=== PATIENT | male | born 1990 | race Two or more races ===

== ENCOUNTER 2017-02-11 20:05 | Emergency (ER) | payer OTHER ==
[2017-02-11 20:24] VITALS: BP 150/89; PULSE 92; RESP 16; TEMP 98.4; O2SAT 95
--- NOTE | 2017-02-11 20:43 | UCPHY ---
H & P Patient Type: Established Chief Complaint Nursing Narrative: fever/congestion since . severe cough on and off x 1 year. Time Seen by Provider: 02/11/17 20:35 HPI/ROS: CHIEF COMPLAINT: Cough HISTORY OF PRESENT ILLNESS: Patient is a 26-year-old man who comes to the Urgent Care complaining of cough for the last 2 days as well as intermittent fevers. He states that he has had a intermittent cough for the last year ever since he had bronchitis but that is worsened over the last 2 days. He does not smoke. He does not have any history of asthma or respiratory disease. Mom states that it sounds like he has pneumonia because of his thick junky cough. He does complain of chills. He describes symptoms as moderate. No sore throat , no sinus congestion REVIEW OF SYSTEMS: Constitutional: denies: chills, fever, recent illness, recent injury EENTM: denies: blurred vision, double vision, nose congestion Respiratory: See HPI Cardiac: denies: chest pain, irregular heart rate, lightheadedness, palpitations Gastrointestinal/Abdominal: denies: abdominal pain, diarrhea, nausea, vomiting, blood streaked stools Genitourinary: denies: dysuria, frequency, hematuria, pain Musculoskeletal: denies: joint pain, muscle pain Skin: denies: lesions, rash, jaundice, bruising Neurological: denies: headache, numbness, paresthesia, tingling, dizziness, weakness Hematologic/Lymphatic: denies: blood clots, easy bleeding, easy bruising Immunologic/allergic: denies: HIV/AIDS, transplant EXAM: GENERAL: Well-appearing, well-nourished and in no acute distress. HEAD: Atraumatic, normocephalic. EYES: Pupils equal round and reactive to light, extraocular movements intact, sclera anicteric, conjunctiva are normal. ENT: TMs normal, nares patent, oropharynx clear without exudates. Moist mucous membranes. NECK: Normal range of motion, supple without lymphadenopathy or JVD. LUNGS: Breath sounds clear to auscultation bilaterally and equal. No wheezes rales or rhonchi. Upper airway sound HEART: Regular rate and rhythm without murmurs, rubs or gallops. ABDOMEN: Soft, nontender, normoactive bowel sounds. No guarding, no rebound. No masses appreciated. BACK: No CVA tenderness, no spinal tenderness, step-offs or deformities EXTREMITIES: Normal range of motion, no pitting or edema. No clubbing or cyanosis. NEUROLOGICAL: Cranial nerves II through XII grossly intact. Normal speech, normal gait. 5/5 strength, normal movement in all extremities, normal sensation PSYCH: Normal mood, normal affect. SKIN: Warm, dry, normal turgor, no visible rashes or lesions. Source: Patient, Family Exam Limitations: No limitations - Personal History Current Tetanus Diphtheria and Acellular Pertussis (TDAP): Yes Tetanus Vaccine Date: within 10 years - Medical/Surgical History Hx Asthma: No Hx Chronic Respiratory Disease: No Hx Diabetes: No Hx Cardiac Disease: No Hx Renal Disease: No Hx Cirrhosis: No Hx Alcoholism: No Hx HIV/AIDS: No Hx Splenectomy or Spleen Trauma: No Other PMH: gallstones, bronchitis - Family History Significant Family History: No pertinent family hx - Social History Smoking Status: Never smoked Alcohol Use: Sober Drug Use: None Constitutional: Initial Vital Signs Temperature (C) 36.9 C 02/11/17 20:19 Heart Rate 92 02/11/17 20:19 Respiratory Rate 16 02/11/17 20:19 Blood Pressure 150/89 H 02/11/17 20:19 O2 Sat (%) 95 02/11/17 20:19 O2 Delivery Mode Room Air Allergies/Adverse Reactions: No Known Allergies Allergy (Verified 02/11/17 20:18) Home Medications: Medication Instructions Recorded AZITHROMYCIN [Z-PACK] 250 mg PO DAILY #4 tab 02/11/17 Amoxicillin Trihydrate 500 mg PO TID 7 Days 02/11/17 [Amoxicillin] Promethazine HCl/Codeine 5 ml PO Q4-6PRN PRN #90 ml 02/11/17 [Prometh-Codein 6.25-10 mg/5 ml] Medical Decision Making - Diagnostics Imaging: X-ray: chest x-ray was obtained. I viewed the images myself on the PACS system. My interpretation of the images is: Retrocardiac infiltrate. The radiologist interpretation is pending. ED Course/Re-evaluation: We discussed the x-ray results. I will start the patient on azithromycin and amoxicillin. He does lifting at work and so quinolone would be possibly dangerous to his tendons. Mom and patient understand and agree with this plan. They declined further workup or testing. I will also give him an albuterol inhaler to use p.r.n. for coughing. He states that it helped this morning when he used his brother's nebulizer. Differential Diagnosis: Partial list of the Differential diagnosis considered include but were not limited to; pneumonia, bronchitis, upper respiratory tract infection and although unlikely based on the history and physical exam, I also considered sepsis, meningitis, pneumothorax, abscess. I discussed these differential diagnoses and the plan with the patient as well as the usual and expected course. The patient understands that the diagnosis is provisional and that in medicine we are not always correct and that further workup is often warranted. Usual and customary warnings were given. All of the patient's questions were answered. The patient was instructed to return to the emergency department should the symptoms at all worsen or return, otherwise to followup with the physician as we discussed. - Data Points Laboratory Results: 02/11/17 20:45 Influenza Typ A,B (DFA) NEGATIVE FOR FLU (NEGATIVE) Medications Given: Discontinued Medications Hydrocodone Bitart/Acetaminophen (Kincaid 5/325mg Prepack#6) 1 btl TAKEHOME EDNOW ONE Stop: 02/11/17 22:26 Last Admin: 02/11/17 22:27 Dose: 1 btl Amoxicillin (Amoxicillin) 500 mg PO EDNOW ONE PRN Reason: Protocol Stop: 02/11/17 22:06 Last Admin: 02/11/17 22:14 Dose: Not Given Amoxicillin (Amoxil Chewable 250 Mg Prepack#4) 1 btl TAKEHOME EDNOW ONE PRN Reason: Protocol Stop: 02/11/17 22:14 Last Admin: 02/11/17 22:14 Dose: 1 btl Azithromycin (Zithromax) 500 mg PO EDNOW ONE PRN Reason: Protocol Stop: 02/11/17 22:06 Last Admin: 02/11/17 22:15 Dose: 500 mg Departure - Departure Disposition: Home, Routine, Self-Care Clinical Impression: Pneumonia Qualifiers: Pneumonia type: due to unspecified organism Laterality: left Lung location: lower lobe of lung Qualified Code(s): J18.1 - Lobar pneumonia, unspecified organism Condition: Fair Instructions: Amoxicillin (By mouth), Pneumonia (ED) Referrals: Shayy Tomas [Primary Care Provider] - As per Instructions Stand Alone Forms: Work Excuse Prescriptions: Amoxicillin Trihydrate [Amoxicillin] 500 mg PO TID 7 Days AZITHROMYCIN [Z-PACK] 250 mg PO DAILY #4 tab Promethazine HCl/Codeine [Prometh-Codein 6.25-10 mg/5 ml] 5 ml PO Q4-6PRN PRN # 90 ml PRN Reason: Cough, Moderate - PQRS PQRS Measurement: Not applicable
[2017-02-11] MEDS ORDERED: AZITHROMYCIN 250 MG TAB PO ONE (22:05)
[2017-02-11] MEDS ORDERED: AMOXICILLIN 250 MG PREPACK#4 BTL TAKEHOME ONE ×2 (22:10→22:13)
[2017-02-11] MEDS ORDERED: HYDROCOD/APAP 5/325 PREPACK#6 BTL TAKEHOME ONE (22:25)
== END 2017-02-11 22:32 | disposition home or self-care (01) ==
LOC: CED 20:05
DX: J18.1 Lobar pneumonia, unspecified organism (principal)
CPT/HCPCS: 71020-PO; 87400-PO; 99214-PO; G0463-PO

== ENCOUNTER 2017-07-31 06:26 | Emergency (ER) | payer SELFPAY ==
[2017-07-31 06:38] VITALS: RESP 18
[2017-07-31] MEDS ORDERED: ACETAMINOPHEN 500 MG TAB PO ONE (06:40)
--- NOTE | 2017-07-31 07:28 | EDPHY ---
H & P Stated Complaint: fever, cough, headache since Sunday Time Seen by Provider: 07/31/17 06:57 HPI/ROS: CHIEF COMPLAINT: Cough and fever History by patient HISTORY OF PRESENT ILLNESS: 27-year-old man with no past medical history presents complaining of 3 days of fever, body aches, dry painful cough, sore throat and sinus congestion. He denies any nausea, vomiting or diarrhea. There has been no rash. There has been no tick bites or mosquito bites. His younger brother was sick with a similar illness but did not feel as bad. He has tried NyQuil and ibuprofen with minimal relief. He has tried Sudafed with good improvement in his sinus congestion. The cough has been keeping him awake at night. The patient does not smoke. REVIEW OF SYSTEMS: As in HPI, and all other systems reviewed and are negative Source: Patient, Family - Personal History Current Tetanus/Diphtheria Vaccine: Unsure Current Tetanus Diphtheria and Acellular Pertussis (TDAP): Unsure Tetanus Vaccine Date: within 10 years - Medical/Surgical History Hx Asthma: No Hx Chronic Respiratory Disease: No Hx Diabetes: No Hx Cardiac Disease: No Hx Renal Disease: No Hx Cirrhosis: No Hx Alcoholism: No Hx HIV/AIDS: No Hx Splenectomy or Spleen Trauma: No Other PMH: gallstones, bronchitis - Family History Significant Family History: Lung disease - Social History Smoking Status: Never smoked - Physical Exam Exam: General Appearance: Alert and no distress. Obese Head: normocephalic, atraumatic, no sinus tenderness Eyes: Pupils equal and round no injection. Ears: TM clear bilat OP: mucus membranes moist, bilateral tonsillar enlargement, positive erythema but no exudates Neck: no meningismus, no cervical nodes, no submandibular nodes Respiratory: Chest is nontender, lungs are clear to auscultation. Positive end -expiratory wheeze with forced expiration high and wheezy cough Cardiac: regular rate and rhythm. Gastrointestinal: Abdomen is soft and nontender, no masses, bowel sounds normal. Musculoskeletal: Neck is supple and nontender. Extremities have full range of motion and are nontender. Skin: No rashes or lesions. Constitutional: Initial Vital Signs Temperature (C) 38.5 C H 07/31/17 06:36 Heart Rate 116 H 07/31/17 06:36 Respiratory Rate 18 07/31/17 06:36 Blood Pressure 136/84 H 07/31/17 06:36 O2 Sat (%) 94 07/31/17 06:36 O2 Delivery Mode Room Air Allergies/Adverse Reactions: No Known Allergies Allergy (Verified 02/11/17 20:18) Home Medications: Medication Instructions Recorded Albuterol [Proventil Inhaler HFA 1 - 2 puffs IH Q4H PRN #1 mdi 07/31/17 (*)] Medical Decision Making - Diagnostics Imaging: I viewed and interpreted images myself ED Course/Re-evaluation: 27-year-old man presents complaining of 3 days of fever, myalgias and cough and sinus congestion. He is febrile here but nontoxic-appearing and there is no evidence of hypoxia or significant systemic toxicity. He is taking fluids without difficulty. X-ray shows no evidence of pneumonia. We will give a trial of albuterol for his cough. We discussed home care measures and return precautions including but not limited to persistent or worsening fever, difficulty breathing, change in mental status or other new problems or concerns with the patient and his mother. - Data Points Medications Given: Discontinued Medications Acetaminophen (Tylenol) 1,000 mg PO EDNOW ONE Stop: 07/31/17 06:41 Last Admin: 07/31/17 06:45 Dose: 1,000 mg Departure - Departure Disposition: Home, Routine, Self-Care Clinical Impression: Bronchitis Fever Qualifiers: Fever type: unspecified Qualified Code(s): R50.9 - Fever, unspecified Condition: Good Instructions: Viral Syndrome (ED) Additional Instructions: You were seen by Dr. Ivana Mejia today. Your x-ray showed no evidence of pneumonia. Use albuterol as needed for cough and use it before you go to bed at night. Take ibuprofen and/or acetaminophen as needed for fever, sore throat and body aches. Try hot drinks with honey. Return for any worsening or new concerns including but not limited to worsening fever, difficulty breathing, or other problems. Referrals: Unknown,Unknown [Primary Care Provider] - As per Instructions Stand Alone Forms: Work Excuse Prescriptions: Albuterol [Proventil Inhaler HFA (*)] 1 - 2 puffs IH Q4H PRN #1 mdi PRN Reason: cough
[2017-07-31 07:42] VITALS: BP 133/68; PULSE 110; TEMP 99.7; O2SAT 92
== END 2017-07-31 07:41 | disposition home or self-care (01) ==
LOC: CED 06:26
DX: J40 Bronchitis, not specified as acute or chronic (principal)
CPT/HCPCS: 71020-PO

== ENCOUNTER 2018-01-08 09:10 | Emergency (ER) | payer OTHER ==
[2018-01-08] MEDS ORDERED: ACETAMINOPHEN 500 MG TAB PO ONE (09:18)
[2018-01-08] MEDS ORDERED: NS 1,000 ML IV ONE (09:28)
--- NOTE | 2018-01-08 09:35 | EDPHY ---
H & P Time Seen by Provider: 01/08/18 09:12 HPI/ROS: 27-year-old male presents complaining of body aches, fevers, chills, cough, sore throat for the last approximately 48 hr. He states he has chest pain when he coughs. Review of systems As per HPI General positive fever positive chills no weakness HEENT no eye pain no eye discharge. No eye redness, positive sore throat Respiratory positive cough no shortness of breath Cardiac no chest pain, no peripheral edema GI no abdominal pain, no diarrhea, no constipation, no nausea, no vomiting no flank pain, no hematuria, no dysuria Musculoskeletal no myalgias, no joint pain Heme no easy bruising, no easy bleeding Endo no polyuria, no polydipsia Skin no rashes, no pruritus Neuro no syncope, no dizziness, no headaches Psych is no suicidal ideation, no homicidal ideation Past Medical/Surgical History: Bronchitis Social History: Denies alcohol or drug use Smoking Status: Never smoked Physical Exam: 27-year-old male alert and oriented, febrile to 39.5 Appears ill, nontoxic Atraumatic normocephalic Extraocular muscles intact, anicteric Nares mild yellowish discharge Oropharynx mild erythema no tonsillar swelling no exudate no uvular deviation, tolerating own secretions Neck supple no lymphadenopathy Lungs clear to auscultation bilaterally Heart rapid rate regular rhythm, 125 Abdomen normoactive bowel sounds soft nontender Extremities no cyanosis clubbing or edema Skin no rash Constitutional: Initial Vital Signs Temperature (C) 39.5 C H 01/08/18 09:14 Heart Rate 125 H 01/08/18 09:14 Respiratory Rate 20 01/08/18 09:14 Blood Pressure 168/95 H 01/08/18 09:14 O2 Sat (%) 91 L 01/08/18 09:14 O2 Delivery Mode Room Air Allergies/Adverse Reactions: No Known Allergies Allergy (Verified 01/08/18 09:17) Home Medications: Medication Instructions Recorded Oseltamivir Phosphate [Tamiflu 75 75 mg PO BID #10 cap 01/08/18 mg (*)] Medical Decision Making - Diagnostics Imaging Results: Imaging Impressions Chest X-Ray 01/08/18 09:31 Impression: No acute findings in the chest. ED Course/Re-evaluation: Patient seen and evaluated for body aches, cough, sore throat, fever to 39.5. Influenza positive for influenza A Chest x-ray no consolidation CBC within normal limits BMP no acidosis Lactate normal IV fluids normal saline 1 L wide open Acetaminophen 1 g p.o. Toradol 30 mg IV push Impression Influenza a Dehydration Fever Plan Home Rest, drink plenty of fluids, acetaminophen or ibuprofen as needed for fever Return if worsening Differential Diagnosis: Differential diagnosis considered but not limited to Pneumonia, URI, bronchitis, influenza, viral syndrome, pharyngitis, dehydration - Data Points Laboratory Results: Laboratory Results 01/08/18 09:40 01/08/18 09:40 01/08/18 01/08/18 01/08/18 10:10 09:51 09:40 WBC RBC Hgb Hct MCV MCH MCHC RDW Plt Count MPV Neut % (Auto) Lymph % (Auto) [place] % (Auto) Eos % (Auto) Baso % (Auto) Nucleat RBC Rel Count Absolute Neuts (auto) Absolute Lymphs (auto) Absolute Monos (auto) Absolute Eos (auto) Absolute Basos (auto) Absolute Nucleated RBC Immature Gran % Immature Gran # VBG Lactic Acid 0.9 mmol/L mmol/L (0.7-2.1) Sodium 141 mEq/L mEq/L (135-145) Potassium 4.3 mEq/L mEq/L (3.5-5.2) Chloride 102 mEq/L mEq/L (97-110) Carbon Dioxide 24 mEq/l mEq/l (22-31) Anion Gap 15 mEq/L mEq/L (8-16) BUN 8 mg/dL mg/dL (7-23) Creatinine 0.9 mg/dL mg/dL (0.7-1.3) Estimated GFR > 60 Glucose 105 mg/dL H mg/dL (70-100) Calcium 8.8 mg/dL mg/dL (8.5-10.4) Influenza A,B Rapid POSITIVE FOR FLU A H (NEGATIVE) 01/08/18 09:40 WBC 7.16 10^3/uL 10^3/uL (3.80-9.50) RBC 5.70 10^6/uL 10^6/uL (4.40-6.38) Hgb 17.1 g/dL g/dL (13.7-17.5) Hct 48.4 % % (40.0-51.0) MCV 84.9 fL fL (81.5-99.8) MCH 30.0 pg pg (27.9-34.1) MCHC 35.3 g/dL g/dL (32.4-36.7) RDW 12.2 % % (11.5-15.2) Plt Count 187 10^3/uL 10^3/uL (150-400) MPV 9.8 fL fL (8.7-11.7) Neut % (Auto) 75.3 % H % (39.3-74.2) Lymph % (Auto) 12.4 % L % (15.0-45.0) [place] % (Auto) 11.0 % % (4.5-13.0) Eos % (Auto) 0.6 % % (0.6-7.6) Baso % (Auto) 0.4 % % (0.3-1.7) Nucleat RBC Rel Count 0.0 % % (0.0-0.2) Absolute Neuts (auto) 5.39 10^3/uL 10^3/uL (1.70-6.50) Absolute Lymphs (auto) 0.89 10^3/uL L 10^3/uL (1.00-3.00) Absolute Monos (auto) 0.79 10^3/uL 10^3/uL (0.30-0.80) Absolute Eos (auto) 0.04 10^3/uL 10^3/uL (0.03-0.40) Absolute Basos (auto) 0.03 10^3/uL 10^3/uL (0.02-0.10) Absolute Nucleated RBC 0.00 10^3/uL 10^3/uL (0-0.01) Immature Gran % 0.3 % % (0.0-1.1) Immature Gran # 0.02 10^3/uL 10^3/uL (0.00-0.10) VBG Lactic Acid Sodium Potassium Chloride Carbon Dioxide Anion Gap BUN Creatinine Estimated GFR Glucose Calcium Influenza A,B Rapid Medications Given: Discontinued Medications Acetaminophen (Tylenol) 1,000 mg PO EDNOW ONE Stop: 01/08/18 09:19 Last Admin: 01/08/18 09:21 Dose: 1,000 mg Sodium Chloride (Ns) 1,000 mls @ 0 mls/hr IV ONCE ONE PRN Reason: Wide Open Stop: 01/08/18 09:29 Last Admin: 01/08/18 09:40 Dose: 1,000 mls Ketorolac Tromethamine (Toradol) 30 mg IVP EDNOW ONE Stop: 01/08/18 10:13 Last Admin: 01/08/18 10:14 Dose: 30 mg Departure - Departure Disposition: Home, Routine, Self-Care Clinical Impression: Influenza A, Dehydration fever Condition: Good Instructions: Influenza (ED) Referrals: Shayy Tomas [Primary Care Provider] - As per Instructions Stand Alone Forms: Work Excuse Prescriptions: Oseltamivir Phosphate [Tamiflu 75 mg (*)] 75 mg PO BID #10 cap
[2018-01-08 09:46] LABS: PLATELET COUNT 187 10^3/uL (150-400)
[2018-01-08] MEDS ORDERED: KETOROLAC 30 MG/1 ML SDV IVP ONE (10:12)
[2018-01-08 11:06] VITALS: BP 137/85; PULSE 99; RESP 20; TEMP 100; O2SAT 99
== END 2018-01-08 11:03 | disposition home or self-care (01) ==
LOC: CED 09:10
DX: J10.1 Influenza due to other identified influenza virus with other respiratory manifestations (principal); E86.0 Dehydration
CPT/HCPCS: 71046-PO; 80048-PO; 83605-PO; 85025-PO; 87400-PO; 96374; J1885